=== PATIENT | female | born 1985 | race Caucasian/White ===

== ENCOUNTER 2017-03-12 05:11 | Inpatient (IN) | payer OTHER ==
[2017-03-12] VITALS (9 sets, daily range): BP systolic 102–134; BP diastolic 57–67
[~2017-03-12] VITALS: Ht 157.5 cm; Wt 68.6 kg
[~2017-03-12 05:11] MED LIST: Dilaudid PO; FLINTSTONES GU1 EACH PO; Motrin PO; PROAIR RESPICL90 MCG IH
[2017-03-12 06:00] LABS: EOSINOPHIL (%) 1.6 % (0-5); EOSINOPHIL COUNT 0.1 K/uL (0-0.3); HEMATOCRIT 27.5 % (36.0-46.0); IMMATURE GRANULOCYTE (%) 0.7 % (0.0-0.7); IMMATURE GRANULOCYTE COUNT 0.1 K/uL; INSTRUMENT ABS NEUTROPHIL CT 4.2 K/uL; MCH 26.3 PG (29.0-34.0); MCHC 31.6 G/DL (30.0-36.0); MCV 83.1 FL (83-99); MEAN PLAT.VOLUME 11.1 uM^3 (9.5-12.4); MONOCYTE (%) 9.2 % (3-12); MONOCYTE COUNT 0.6 K/uL (0-0.8); NEUTROPHIL (%) 59.5 % (45-76); NEUTROPHIL COUNT 4.2 K/uL (1.8-6.4); PLATELET COUNT 179 K/uL (156-360); RBC DIS.WIDTH-CV 14.6 % (11.8-14.6); RBC DIS.WIDTH-SD 44.2 % (39-53); RED BLOOD COUNT 3.31 M/uL (3.80-5.20)
[2017-03-13 03:15] VITALS: BP 109/61
[2017-03-13 06:00] LABS: EOSINOPHIL (%) 0.6 % (0-5); EOSINOPHIL COUNT 0.1 K/uL (0-0.3); HEMATOCRIT 24.7 % (36.0-46.0); IMMATURE GRANULOCYTE (%) 0.4 % (0.0-0.7); IMMATURE GRANULOCYTE COUNT 0.1 K/uL; INSTRUMENT ABS NEUTROPHIL CT 8.7 K/uL; LYMPHOCYTE COUNT 2.7 K/uL (1.0-2.8); MCH 26.2 PG (29.0-34.0); MCHC 31.2 G/DL (30.0-36.0); MEAN PLAT.VOLUME 11.2 uM^3 (9.5-12.4); MONOCYTE (%) 6.3 % (3-12); MONOCYTE COUNT 0.8 K/uL (0-0.8); NEUTROPHIL (%) 70.7 % (45-76); NEUTROPHIL COUNT 8.7 K/uL (1.8-6.4); PLATELET COUNT 168 K/uL (156-360); RBC DIS.WIDTH-CV 14.5 % (11.8-14.6); RED BLOOD COUNT 2.94 M/uL (3.80-5.20); WHITE BLOOD COUNT 12.4 K/uL (4.1-10.2)
[2017-03-13 07:26] VITALS: BP 89/60
[2017-03-13 07:53] VITALS: BP 102/54
[2017-03-13 11:12] VITALS: BP 104/61
[2017-03-13 15:08] VITALS: BP 111/65
[2017-03-14 08:40] VITALS: BP 119/66
[2017-03-14] MEDS ORDERED: ENDOCET 5-3251 EACH PO (09:04)
[2017-03-14] MEDS ORDERED: FERROUS SULFAT325 MG PO (09:04)
[2017-03-14] MEDS ORDERED: IBUPROFEN800 MG PO (09:04)
== END 2017-03-14 11:20 | disposition home or self-care (01) | DRG 765 ==
LOC: 2WEST 05:11 → 2SOUTH 09:43 → 2WEST 03-14 11:20
PROVIDERS: Obstetrics & Gynecology
DX: O34.211 Maternal care for low transverse scar from previous cesarean delivery (principal); Z30.2 Encounter for sterilization; O99.824 Streptococcus B carrier state complicating childbirth; O99.02 Anemia complicating childbirth; D50.9 Iron deficiency anemia, unspecified; D62 Acute posthemorrhagic anemia; Z37.0 Single live birth; Z3A.39 39 weeks gestation of pregnancy
CPT/HCPCS: 85025; 86900; 86901; 88302; J0690; J1100; J1885; J2274; J2405; J2765; J3010; J7120